=== PATIENT | female | born 1955 | race Caucasian/White ===

== ENCOUNTER → 2017-03-28 | Outpatient (CLI) | payer OTHER ==
--- NOTE | 2017-03-28 14:55 | Diagnostic Imaging Report ---
EXAM: DXA BONE DENSITY INDICATIONS: Osteoporosis COMPARISON: [facility], DXA DUAL ENERGY: 12/28/2015; 05/11/2010 FINDINGS: Left femoral neck bone mineral density (BMD) (g/cm2):0.603 Femur T-score (standard deviation relative to young adult mean BMD): -2.2 Femur Z-score (standard deviation relative to age-matched control group):-0.9 Lumbar bone mineral density (BMD) (g/cm2):1.01 Lumbar T-score (standard deviation relative to young adult mean BMD): -0.3 Lumbar Z-score (standard deviation relative to age-matched control group):1.1 Change since prior exam (%): Total femur:-0.8% Total spine:+6.1% Change since oldest prior exam (%): Total femur:-4.6%. Total spine:+11.6% CONCLUSION: 1. WHO bone mineral classification: Low bone mass (osteopenia). 2. There is a statistically significant increase in bone mineral density of the spine relative to the prior exam and the patient's baseline exam from May 2010. Hip density is not significantly changed from the prior study, though is significantly decreased relative to the baseline exam. World Health Organization Classification: *The Z-score is provided for informational purposes. The T-score is preferable for clinical decisions. RECOMMENDATIONS: Normal \T\ Low Bone Mass: Calcium supplementation, daily multiple vitamins, and adequate exercise as preventive measures against osteoporosis. Osteoporosis \T\ Severe Osteoporosis: In addition to the above, pharmacologic therapy. Dictated by: Stanton Paul M.D. on 03/28/2017 at 15:03 Electronically approved by: Stanton Paul M.D. on 03/28/2017 at 15:03
== END ==
LOC: DX 13:43
PROVIDERS: ATTEND Internal Medicine Rheumatology
DX: M81.0 Age-related osteoporosis without current pathological fracture (principal)
CPT/HCPCS: 77080

== ENCOUNTER → 2018-09-09 | Outpatient (CLI) | payer BC | LOC: MAMMO 14:20 | PROVIDERS: ATTEND Family Medicine | DX: Z12.31 Encounter for screening mammogram for malignant neoplasm of breast (principal) | CPT/HCPCS: 77067 ==

== ENCOUNTER → 2019-03-18 | Outpatient (CLI) | payer BC ==
--- NOTE | 2019-03-18 17:08 | Diagnostic Imaging Report ---
EXAMINATION: HAND THREE VIEWS BILATERAL INDICATION: Rheumatoid arthritis COMPARISON: None FINDINGS: Right hand: Postoperative findings of interphalangeal fusion of the right thumb with a single threaded screw. No acute fracture or dislocation. Alignment appears anatomic. No evidence of erosive arthritis. Mild scattered degenerative changes. Left hand: No acute fracture or dislocation. Moderate lateral subluxation of the thumb distal phalanx. Severe degenerative changes of the interphalangeal joint of the thumb with [id number] contact and osteophyte formation. The soft tissues appear unremarkable. IMPRESSION: No acute osseous injury. 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 Signed by: Carmelina Justin MD on 03/18/2019 5:05 PM
--- NOTE | 2019-03-18 17:14 | Diagnostic Imaging Report ---
EXAM: Bone mineral density study 03/18/2019 4:01 PM INDICATION: ^OSTEOPOROSIS COMPARISON: Previous DEXA 03/28/2017. Baseline DEXA 05/11/2010 FINDINGS: Evaluation of the left hip and lumbar spine was performed. The study is technically adequate. The patient's fracture risk is compared to an age-matched control. The patient denies prior surgery/fracture of the spine, hips or forearm. LEFT HIP * Femoral neck bone mineral density: 0.619 gm/cm2, T-score is -2.1, Z-score is -0.7. * Total bone mineral density: 0.786 gm/cm2, T-score is -1.3, Z-score is -0.2. * BMD change versus baseline is -3.4% and the BMD change versus previous is +1.2%. LUMBAR SPINE * Total bone mineral density: 1.060 gm/cm2, T-score is 0.1, Z-score is 1.7. * BMD change versus baseline is +17.1% and the BMD change versus previous is +5.0%. IMPRESSION: 1. Bone mineralization by WHO Classification is osteopenia (left hip), the fracture risk is moderate. 2. Since previous exam, there is no significant change of mineralization at the left hip. There is significant improvement of mineralization in the lumbar spine. FRAX Score: 10 -year fracture risk per WHO Fracture Risk Assessment Tool (FRAX) for: Major osteoporotic fracture is 12% Hip fracture is 3.2% The above fracture probability is calculated for an untreated patient. Fracture probably may be lower if the patient has received treatment. All treatment decisions require clinical judgment and consideration of individual patient factors, including patient preferences, comorbidities, previous drug use and risk factors not captured in the FRAX model (e.g. frailty, falls, vitamin D deficiency, increased bone turnover, interval significant decline in BMD). Signed by: Dr. Madi Mitchell M.D. on 03/18/2019 5:11 PM
--- NOTE | 2019-03-18 17:14 | Diagnostic Imaging Report ---
EXAMINATION: FOOT COMPLETE BILATERAL INDICATION: Rheumatoid arthritis COMPARISON: None FINDINGS: Left: There is a mildly displaced fracture of the distal aspect of the fifth proximal phalanx. There is associated adjacent soft tissue swelling. No other acute fracture identified. Alignment is anatomic. No substantial degenerative change. No erosions. Right: No acute fracture or dislocation. Alignment appears anatomic. The soft tissues appear unremarkable. No erosions. IMPRESSION: Mildly displaced acute fracture of the distal aspect of the fifth proximal phalanx. No substantial degenerative change. No evidence of erosive arthritis. Signed by: Carmelina Justin MD on 03/18/2019 5:11 PM
== END ==
LOC: DX 15:49
PROVIDERS: ATTEND Internal Medicine Rheumatology
DX: M81.0 Age-related osteoporosis without current pathological fracture (principal); S92.512A Displaced fracture of proximal phalanx of left lesser toe(s), initial encounter for closed fracture; M06.9 Rheumatoid arthritis, unspecified; M16.11 Unilateral primary osteoarthritis, right hip
CPT/HCPCS: 77080

== ENCOUNTER → 2019-10-28 | Outpatient (CLI) | payer BC ==
--- NOTE | 2019-10-28 16:15 | Diagnostic Imaging Report ---
X-ray right hip multiple views History: Fall Comparison: None Findings: No acute fracture, subluxation, significant soft tissue abnormality. Degenerative disease of the lumbar spine. Impression: No fracture right hip. Signed by: Mushtaq Calderon MD on 10/28/2019 4:12 PM
== END ==
LOC: RAD 15:45
PROVIDERS: ATTEND Internal Medicine Rheumatology
DX: M25.551 Pain in right hip (principal)

== ENCOUNTER → 2020-05-29 | Outpatient (CLI) | payer OTHER | LOC: MAMMO 15:29 | PROVIDERS: ATTEND Obstetrics & Gynecology | DX: Z12.31 Encounter for screening mammogram for malignant neoplasm of breast (principal) | CPT/HCPCS: 77067 ==

== ENCOUNTER → 2021-01-18 | Outpatient (CLI) | payer OTHER | LOC: RAD 12:55 | PROVIDERS: ATTEND Anesthesiology Pain Medicine | DX: M54.2 Cervicalgia (principal); M54.41 Lumbago with sciatica, right side | CPT/HCPCS: 72050; 72100 ==

== ENCOUNTER 2021-01-23 13:35 | Outpatient (RCR) | payer OTHER | END 2021-01-28 | LOC: PT 13:35 | PROVIDERS: ATTEND Anesthesiology Pain Medicine | DX: M54.41 Lumbago with sciatica, right side (principal); M51.36 Other intervertebral disc degeneration, lumbar region; M50.30 Other cervical disc degeneration, unspecified cervical region; G89.4 Chronic pain syndrome ==

== ENCOUNTER → 2024-02-17 | Day surgery (SDC) | payer BC, OTHER ==
[2024-02-12 11:08] LABS: BASOPHILS % 0.3 % (0.0-1.0); EOSINOPHILS # (AUTO) 0.1 (0.0-0.4); EOSINOPHILS % 1.9 % (0.0-6.0); HEMATOCRIT 37.7 % (34.2-44.1); HEMOGLOBIN 12.1 g/dL (12.0-16.0); LYMPHOCYTES # (AUTO) 2.5 (1.0-3.2); LYMPHOCYTES % 33.8 % (18.0-39.1); MEAN CORPUSCULAR HEMOGLOBIN 32.1 pg (28-32); MEAN CORPUSCULAR HGB CONC 32.1 g/dL (31-35); MONOCYTES # (AUTO) 0.5 (0.2-0.8); MONOCYTES % 7.1 % (4.4-11.3); NEUTROPHILS # (AUTO) 4.2 (2.1-6.9); NEUTROPHILS % 56.6 % (38.7-80.0); PLATELET COUNT 253 x10e3/uL (140-360); RED BLOOD COUNT 3.77 x10e6/uL (3.6-5.1); RED CELL DISTRIBUTION WIDTH 12.2 % (11.7-14.4); WHITE BLOOD COUNT 7.42 x10e3/uL (4.8-10.8)
[~2024-02-17] MED LIST: ACETAMINOPHEN 1000 MG/100 ML 100 ML IV ONE; AMITRIPTYLINE H25 MG PO; BELBUCA300 MCG PO; CRESTOR40 MG PO; DEXAMETHASONE SOD PHOS INJ 4 MG/ML SDV ONE; DICLOFENAC SODI75 MG PO; EPHEDRINE SULFATE INJ 50 MG/ML VIAL ONE; FENTANYL CITRATE/PF 100MCG/2 ML INJ ONE; FOLIC ACID0.4 MG PO; GLYCOPYRROLATE INJ 0.2 MG/ML VIAL ONE; HYDROCODONE/APAP 7.5MG-325MG 1 EA TAB ONE; LIDOCAINE HCL 2% LOCAL INJ 5 ML SDV VIAL INJ ONE; LYRICA25 MG PO; MELATONIN3 MG PO; MIDAZOLAM HCL 2 MG/2 ML VIAL ONE; MULTI-VITAMIN1 EACH PO; ONDANSETRON HCL INJ 2MG/ML 2ML 2 MG/ML VIAL ONE; ORENCIA125 MG/1 M INJ; PANTOPRAZOLE SO40 MG PO; PHENYLEPHRINE HCL 1% 10 MG/ML VIAL ONE; PROPOFOL IV EMULSION 10 MG/ML 20 ML VIAL ONE; VALACYCLOVIR500 MG PO; VIT B12 PO
[2024-02-17] MEDS: LACTATED RINGER'S 1,000 ML ONE (06:00)
[2024-02-17 08:40] VITALS: TEMP 98.5
[2024-02-17] MEDS: HYDROCODONE/APAP 7.5MG-325MG 1 EA TAB PO ONE (09:15)
[2024-02-17 09:35] VITALS: BP 117/66; PULSE 95; RESP 18; O2SAT 99
== END | disposition home or self-care (01) ==
LOC: OR 05:16
PROVIDERS: ATTEND Plastic Surgery
DX: M18.11 Unilateral primary osteoarthritis of first carpometacarpal joint, right hand (principal); M25.741 Osteophyte, right hand; S63.041A Subluxation of carpometacarpal joint of right thumb, initial encounter; M06.9 Rheumatoid arthritis, unspecified; E78.5 Hyperlipidemia, unspecified; K21.9 Gastro-esophageal reflux disease without esophagitis; F17.200 Nicotine dependence, unspecified, uncomplicated; X58.XXXA Exposure to other specified factors, initial encounter; Z88.8 Allergy status to other drugs, medicaments and biological substances; Z88.1 Allergy status to other antibiotic agents; Z91.040 Latex allergy status; Z01.810 Encounter for preprocedural cardiovascular examination; Z01.812 Encounter for preprocedural laboratory examination; Z01.818 Encounter for other preprocedural examination; Z79.899 Other long term (current) drug therapy
CPT/HCPCS: 25447; 36415; 71046; 85025; 93005; C1713; J0131; J0690; J1100; J2003; J2250; J2371; J2405; J2704; J3010; J7121